=== PATIENT | female | born 1980 | race Caucasian/White ===

== ENCOUNTER 2017-08-30 12:02 | Emergency (ER) | payer OTHER ==
[~2017-08-30] VITALS: Ht 170.2 cm; Wt 70.3 kg
[~2017-08-30 12:02] MED LIST: ACETAMINOPHEN-1 EAC1 PO; AFRIN15 ML NS; AUGMENTIN 875875 MG PO; CIPROFLOXACIN500 M1 PO; HYDROCODONE-AP1 EAC6 PO; IBUPROFEN 800800 M1 PO; PENICILLIN VK500 M1 PO; TOBRADEX ST EYE5 ML OP; TOBRAMYCIN SULFA5 ML OP
[2017-08-30] MEDS ORDERED: NORCO 5-325 TA1 EACH PO (12:19)
[2017-08-30] MEDS ORDERED: IBUPROFEN 800800 M1 PO (12:24)
[2017-08-30] MEDS ORDERED: AMOXICILLIN 50500 MG PO (12:24)
[2017-08-30] MEDS ORDERED: ACETAMINOPHEN-1 EAC1 PO (12:24)
[2017-08-30 12:52] VITALS: BP 131/63
== END 2017-08-30 12:53 | disposition home or self-care (01) ==
LOC: M.ERS 12:02
DX: K02.9 Dental caries, unspecified (principal)

== ENCOUNTER 2019-10-04 09:20 | Emergency (ER) | payer OTHER, MEDICAID ==
[~2019-10-04] VITALS: Ht 170.2 cm; Wt 74.8 kg
[~2019-10-04 09:20] MED LIST changes: +AMOXICILLIN 50500 MG PO; +NORCO 5-325 TA1 EACH PO
[2019-10-04 10:02] LABS: URINE BILIRUBIN NEGATIVE (Negative); URINE BLOOD 3+ (Negative); URINE CLARITY CLEAR; URINE COLOR YELLOW; URINE GLUCOSE-RANDOM NEGATIVE (Negative); URINE KETONES NEGATIVE (Negative); URINE LEUKOCYTES-REFLEX NEGATIVE (Negative); URINE NITRITE-REFLEX NEGATIVE (Negative); URINE PROTEIN NEGATIVE (Negative); URINE UROBILINOGEN 0.2 E.U./dl (0.2-1.0)
[2019-10-04 10:09] LABS: SQUAMOUS 0-3 Few /LPF (0-3); URINE WBC-REFLEX 0-5 Rare /HPF (0-5)
[2019-10-04 10:10] LABS: BACTERIA-REFLEX 1-9 Few /HPF (None Seen); CASTS None Seen /LPF (None Seen); CRYSTALS None Seen /LPF (None Seen); MUCUS None Seen strn/LPF (None Seen); URINE RBC 3-10 Few /HPF (0-2)
[2019-10-04] MEDS ORDERED: HYDROCODON-ACE1 EAC7 PO (13:24)
[2019-10-04] MEDS ORDERED: ZOFRAN ODT4 MG PO (13:24)
[2019-10-04 13:34] VITALS: BP 106/78
== END 2019-10-04 13:34 | disposition home or self-care (01) ==
LOC: M.ERS 09:20
PROVIDERS: Personal Emergency Response Attendant
DX: O20.0 Threatened abortion (principal); Z3A.08 8 weeks gestation of pregnancy

== ENCOUNTER 2019-10-05 03:47 | Emergency (ER) | payer OTHER, MEDICAID ==
[~2019-10-05] VITALS: Ht 170.2 cm; Wt 74.8 kg
[~2019-10-05 03:47] MED LIST changes: +HYDROCODON-ACE1 EAC7 PO; +ZOFRAN ODT4 MG PO
[2019-10-05 03:58] VITALS: BP 200/62
== END 2019-10-05 04:26 | disposition home or self-care (01) ==
LOC: M.ERS 03:47
DX: O20.0 Threatened abortion (principal); Z3A.12 12 weeks gestation of pregnancy

== ENCOUNTER 2020-02-13 17:30 | Emergency (ER) | payer OTHER, MEDICAID ==
[~2020-02-13] VITALS: Ht 170.2 cm; Wt 72.6 kg
[2020-02-13 18:22] LABS: INFLUENZA A ANTIGEN Negative (Negative); INFLUENZA B ANTIGEN Negative (Negative)
[2020-02-13] MEDS ORDERED: ZPAK PO (18:27)
[2020-02-13] MEDS ORDERED: PREDNISONE 20 M20 MG PO (18:27)
[2020-02-13] MEDS ORDERED: VENTOLIN HFA 1818 GM INH (18:27)
[2020-02-13 18:47] VITALS: BP 120/82
== END 2020-02-13 18:48 | disposition home or self-care (01) ==
LOC: M.ERS 17:30
PROVIDERS: Nurse Practitioner Family
DX: J06.9 Acute upper respiratory infection, unspecified (principal); Z20.828 Contact with and (suspected) exposure to other viral communicable diseases; Z87.891 Personal history of nicotine dependence